=== PATIENT | male | born 1970 | race Caucasian/White ===

== ENCOUNTER 2021-12-23 01:54 | Inpatient (IN) | payer SELFPAY ==
[~2021-12-23] VITALS: Ht 180.3 cm; Wt 79.9 kg
[2021-12-23] MEDS ORDERED: PANTOPRAZOLE 40 MG (PROTONIX) VIAL IV ONE (02:15)
[2021-12-23] MEDS ORDERED: ONDANSETRON 4 MG/2 ML (SDV) Z0FRAN IVP ONE (02:15)
--- NOTE | 2021-12-23 02:18 | ED Chest Pain ---
General Chief Complaint: Chest Pain Stated Complaint: CP, SMOKING METH Source: patient, EMS History of Present Illness Date Seen by Provider: Dec 23, 2021 Time Seen by Provider: 02:05 Initial Comments PT ARRIVES VIA [facility] EMS FROM HOME EMS STAFF DID EKG AND READ IT "STEMI" AND CALLED MUD ANALYSIS OPERATOR--DR. ORR IS HERE ON PT'S ARRIVAL AND HE VIEWED EKG BY EMS AND EKG WAS DONE ON ARRIVAL HERE, AND HE ADVISES THAT EKG DOES NOT SHOW A STEMI, SO MUD ANALYSIS OPERATOR WAS CALLED OFF, AND DR. Mary Grace SCHULZ ADVISES TO WORK UP IN ER, AND WILL CALL HIM WITH TEST RESULTS PT STATES HIS SYMPTOMS BEGAN AROUND 0015 HE HAS BEEN INHALING METH THROUGH A "HOT RAIL" ("HOT RAILING METH") AND ALSO SMOKING THC. DENIES ETOH STATES HE STARTED GETTING DIZZY, AND BROKE OUT INTO A SWEAT, HAD NAUSEA, SOME SHORTNESS OF BREATH AND CHEST PAIN RATES PAIN 4/10 DESCRIBES ALOT OF ACID-REFLUX SYMPTOMS--STATES HE CAN FEEL THE ACID COMING UP TO HIS THROAT BP WAS 220'S SYSTOLIC FOR EMS THEY GAVE PT 324 MG ASPIRIN AND 1" NITROPASTE APPLIED, THEY ALSO GAVE ZOFRAN 4 MG PT DENIES ANY HISTORY OF CARDIAC PROBLEMS DENIES ANY MEDICAL PROBLEMS OF ANY KIND PCP: NONE Allergies and Home Medications Allergies Coded Allergies: No Known Drug Allergies (Unverified , 12/23/21) Patient Home Medication List Home Medication List Reviewed: Yes Review of Systems Review of Systems Constitutional: see HPI, chills, diaphoresis, dizziness Respiratory: See HPI, Cough, Shortness of Air Cardiovascular: See HPI, Chest Pain, Lightheadedness Gastrointestinal: See HPI; Denies Abdominal Pain; Nausea; Denies Vomiting Genitourinary: No Symptoms Reported Musculoskeletal: no symptoms reported Psychiatric/Neurological: Anxiety Endocrine: No Symptoms Reported Hematologic/Lymphatic: No Symptoms Reported Past Spcytba-Qlqgzh-Ssvbpv Hx Patient Social History Tobacco Use?: Yes Tobacco type used: Cigarettes Smoking Status: Current Everyday Smoker Substance use?: Yes Substance type: Methamphetamine, Marijuana Additional substance use comme: SMOKES METH Substance frequency: Daily Alcohol Use?: Yes Alcohol Frequency: Several times a month Past Medical History Surgeries: No Respiratory: No Cardiac: No Neurological: No Genitourinary: No Gastrointestinal: No Musculoskeletal: No Endocrine: No HEENT: No Cancer: No Psychosocial: Yes (POLUSUBTANCE ABUSE) Integumentary: No Blood Disorders: No Physical Exam Vital Signs Vital Signs - First Documented 12/23/21 02:00 Temp 36.8 Pulse 96 Resp 22 B/P (MAP) 174/96 (122) Pulse Ox 97 O2 Delivery Room Air Capillary Refill : Height, Weight, BMI Height: '" Weight: lbs. oz. kg; BMI Method: General Appearance: No Apparent Distress, WD/WN, Anxious, Other (CONSTANT MOVEMENTS, SHIVERING, CRUNTING AND GROWLING. ) Neck: Normal Inspection; No Carotid Bruit, No JVD Respiratory: Chest Non Tender, Normal Breath Sounds, No Accessory Muscle Use, No Respiratory Distress Cardiovascular: No Edema, No JVD, No Murmur, Normal Peripheral Pulses, Tachyca rdia Gastrointestinal: Non Tender, Soft Extremity: Normal Capillary Refill, Normal Inspection, Normal Range of Motion, Non Tender, No Calf Tenderness, No Pedal Edema Neurologic/Psychiatric: Alert, Oriented x3, No Motor/Sensory Deficits, extractor loader and unloader II- XII Norm as Tested Skin: Normal Color, Warm/Dry, Rash (HAS PATCHY MACULAR RASH ON TRUNK) Progress/Results/Core Measures Results/Orders Lab Results Laboratory Tests Test 12/23/21 02:08 12/23/21 02:14 12/23/21 02:50 Range/Units White Blood Count 10.6 4.3-11.0 10^3/uL Red Blood Count 4.43 4.30-5.52 10^6/uL Hemoglobin 14.0 13.3-17.7 g/dL Hematocrit 40 40-54 % Mean Corpuscular Volume 91 80-99 fL Mean Corpuscular Hemoglobin 32 25-34 pg Mean Corpuscular Hemoglobin Concent 35 32-36 g/dL Red Cell Distribution Width 12.7 10.0-14.5 % Platelet Count 314 130-400 10^3/uL Mean Platelet Volume 9.0 9.0-12.2 fL Immature Granulocyte % (Auto) 1 % Neutrophils (%) (Auto) 54 42-75 % Lymphocytes (%) (Auto) 33 12-44 % Monocytes (%) (Auto) 10 0-12 % Eosinophils (%) (Auto) 2 0-10 % Basophils (%) (Auto) 1 0-10 % Neutrophils # (Auto) 5.7 1.8-7.8 10^3/uL Lymphocytes # (Auto) 3.5 1.0-4.0 10^3/uL Monocytes # (Auto) 1.0 0.0-1.0 10^3/uL Eosinophils # (Auto) 0.2 0.0-0.3 10^3/uL Basophils # (Auto) 0.1 0.0-0.1 10^3/uL Immature Granulocyte # (Auto) 0.1 0.0-0.1 10^3/uL Erythrocyte Sedimentation Rate 2 0-15 MM/HR Prothrombin Time 13.4 12.2-14.7 SEC INR Comment 1.0 0.8-1.4 Activated Partial Thromboplast Time 29 24-35 SEC D-Dimer < 0.27 0.00-0.49 UG/ML Sodium Level 140 135-145 MMOL/L Potassium Level 3.8 3.6-5.0 MMOL/L Chloride Level 106 98-107 MMOL/L Carbon Dioxide Level 21 21-32 MMOL/L Anion Gap 13 5-14 MMOL/L Blood Urea Nitrogen 15 7-18 MG/DL Creatinine 1.11 0.60-1.30 MG/DL Estimat Glomerular Filtration Rate 81 BUN/Creatinine Ratio 14 Glucose Level 122 H 70-105 MG/DL Calcium Level 8.9 8.5-10.1 MG/DL Corrected Calcium 8.7 8.5-10.1 MG/DL Magnesium Level 1.9 1.6-2.4 MG/DL Total Bilirubin 0.3 0.1-1.0 MG/DL Aspartate Amino Transf (AST/SGOT) 37 H 5-34 U/L Alanine Aminotransferase (ALT/SGPT) 41 0-55 U/L Alkaline Phosphatase 34 L 40-136 U/L Total Creatine Kinase 282 H 30-200 U/L Creatine Kinase MB 3.8 <6.6 NG/ML Myoglobin 84.5 10.0-92.0 NG/ML Troponin I < 0.028 <0.028 NG/ML C-Reactive Protein High Sensitivity 0.05 0.00-0.50 MG/DL B-Type Natriuretic Peptide 13.2 <100.0 PG/ML Total Protein 7.1 6.4-8.2 GM/DL Albumin 4.3 3.2-4.5 GM/DL Amylase Level 60 25-125 U/L Lipase 39 8-78 U/L Acetaminophen Level < 10 L 10-30 UG/ML Serum Alcohol < 10 <10 MG/DL Influenza Type A (RT-PCR) Not Detected Not Detecte Influenza Type B (RT-PCR) Not Detected Not Detecte SARS-CoV-2 RNA (RT-PCR) Not Detected Not Detecte Urine Color YELLOW Urine Clarity CLEAR Urine pH 6.0 5-9 Urine Specific [place] <=1.005 1.016-1.022 Urine Protein NEGATIVE NEGATIVE Urine Glucose (UA) NEGATIVE NEGATIVE Urine Ketones NEGATIVE NEGATIVE Urine Nitrite NEGATIVE NEGATIVE Urine Bilirubin NEGATIVE NEGATIVE Urine Urobilinogen 0.2 < = 1.0 MG/DL Urine Leukocyte Esterase NEGATIVE NEGATIVE Urine RBC (Auto) NEGATIVE NEGATIVE Urine RBC NONE /HPF Urine WBC NONE /HPF Urine Crystals NONE /LPF Urine Leucine Crystals /LPF Urine Bacteria NEGATIVE /HPF Urine Casts NONE /LPF Urine Mucus NEGATIVE /LPF Urine Culture Indicated NO Urine Opiates Screen NEGATIVE NEGATIVE Urine Oxycodone Screen NEGATIVE NEGATIVE Urine Methadone Screen NEGATIVE NEGATIVE Urine Propoxyphene Screen NEGATIVE NEGATIVE Urine Barbiturates Screen NEGATIVE NEGATIVE Ur Tricyclic Antidepressants Screen NEGATIVE NEGATIVE Urine Phencyclidine Screen NEGATIVE NEGATIVE Urine Amphetamines Screen POSITIVE H NEGATIVE Urine Methamphetamines Screen POSITIVE H NEGATIVE Urine Benzodiazepines Screen NEGATIVE NEGATIVE Urine Cocaine Screen NEGATIVE NEGATIVE Urine Cannabinoids Screen POSITIVE H NEGATIVE My Orders Orders - MERLIN MERCEDES DO Ed Iv/Invasive Line Start (12/23/21 02:03) Ekg Tracing (12/23/21 02:03) O2 (12/23/21 02:03) Monitor-Rhythm Ecg Trace Only (12/23/21 02:03) Acetaminophen (12/23/21 02:03) Alcohol (12/23/21 02:03) Amylase (12/23/21 02:03) Bnp Azul (12/23/21 02:03) Cbc With Automated Diff (12/23/21 02:03) Comprehensive Metabolic Panel (12/23/21 02:03) Creatine Kinase (12/23/21 02:03) Creatine Kinase Mb (12/23/21 02:03) Hs C Reactive Protein (12/23/21 02:03) Fibrin Degradation Products (12/23/21 02:03) Drug Screen Stat (Urine) (12/23/21 02:03) Lipase (12/23/21 02:03) Magnesium (12/23/21 02:03) Protime With Inr (12/23/21 02:03) Partial Thromboplastin Time (12/23/21 02:03) Ua Culture If Indicated (12/23/21 02:03) Erythrocyte Sedimentation Rate (12/23/21 02:03) Myoglobin Serum (12/23/21 02:03) Troponin I Azul (12/23/21 02:03) Chest 1 View, Ap/Pa Only (12/23/21 02:03) Ondansetron Injection (Zofran Injectio (12/23/21 02:15) Pantoprazole Injection (Protonix Injecti (12/23/21 02:15) Syphilis Antibody Screen (12/23/21 02:03) Covid 19 Inhouse Test (12/23/21 02:20) Influenza A And B By Pcr (12/23/21 02:20) Isolation Central Supply Req (12/23/21 02:20) Medications Given in ED Current Medications Medications Dose Ordered Sig/Joan Route Start Time Stop Time Status Last Admin Dose Admin Ondansetron HCl 4 mg ONCE ONCE IVP 12/23/21 02:15 12/23/21 02:16 DC 12/23/21 02:40 4 MG Pantoprazole 40 mg ONCE ONCE IV 12/23/21 02:15 12/23/21 02:16 DC 12/23/21 02:40 40 MG Vital Signs/I&O 12/23/21 02:00 Temp 36.8 Pulse 96 Resp 22 B/P (MAP) 174/96 (122) Pulse Ox 97 O2 Delivery Room Air Progress Progress Note : Progress Note NO DETERIORATION IN PT'S CONDITION DURING ER STAY GIVEN ZOFRAN, PROTONIX, GI COCTAIL RATES PAIN 2/10 GIVEN LOVENOX PT IS CALMER AT TIME OF ADMIT Initial ECG Impression Date: Dec 23, 2021 Initial ECG Impression Time: 02:01 Initial ECG Rate: 98 Initial ECG Rhythm: Normal Sinus (ST DEPRESSION ANTERIOR AND LATERALLY, INFERIOR Q WAVES) Diagnostic Imaging Comments CXR--NO ACUTE PROCESS Reviewed: Reviewed by Me Departure Communication (Admissions) 253--SPOKE WITH DR. ORR, ADVISES TO GIVE LOVENOX, AND ADMIT TO HOSPITALIST 254--SPOKE WITH DR. ESTRADA, HOSPITALIST, ACCEPTS PT FOR ADMIT. 309--REPORT TO E-ICU Impression Primary Impression: Chest pain Additional Impressions: Methamphetamine use Marijuana use GERD SYMPTOMS NON SPECIFIC RASH ON TRUNK Disposition: ADMITTED INPATIENT Condition: Improved Admissions Decision to Admit Reason: Admit from ER (General) Decision to Admit/Date: Dec 23, 2021 Time/Decision to Admit Time: 02:55 Departure-Patient Inst. Referrals: NO,LOCAL PHYSICIAN (PCP/Family) Primary Care Physician MERLIN MERCEDES DO Dec 23, 2021 02:17
[2021-12-23 02:20] LABS: BASOPHILS # (AUTO) 0.1 10^3/uL (0.0-0.1); BASOPHILS % (AUTO) 1 % (0-10); EOSINOPHILS # (AUTO) 0.2 10^3/uL (0.0-0.3); EOSINOPHILS % (AUTO) 2 % (0-10); HEMATOCRIT 40 % (40-54); LYMPHOCYTES # (AUTO) 3.5 10^3/uL (1.0-4.0); LYMPHOCYTES % (AUTO) 33 % (12-44); MEAN CORPUSCULAR HEMOGLOBIN 32 pg (25-34); MEAN CORPUSCULAR HGB CONC 35 g/dL (32-36); MEAN CORPUSCULAR VOLUME 91 fL (80-99); MONOCYTES % (AUTO) 10 % (0-12); NEUTROPHILS # (AUTO) 5.7 10^3/uL (1.8-7.8); NEUTROPHILS % (AUTO) 54 % (42-75); PLATELET COUNT 314 10^3/uL (130-400); WHITE BLOOD COUNT 10.6 10^3/uL (4.3-11.0)
[2021-12-23 02:31] LABS: ALBUMIN 4.3 GM/DL (3.2-4.5); CHLORIDE 106 MMOL/L (98-107); POTASSIUM 3.8 MMOL/L (3.6-5.0); SODIUM 140 MMOL/L (135-145)
[2021-12-23 02:32] LABS: CALCIUM 8.9 MG/DL (8.5-10.1)
[2021-12-23 02:33] LABS: AMYLASE 60 U/L (25-125)
[2021-12-23 02:34] LABS: FIBRIN DEGRADATION PRODUCTS < 0.27 UG/ML (0.00-0.49); GLUCOSE 122 MG/DL (70-105); PARTIAL THROMBOPLASTIN TIME 29 SEC (24-35); PROTHROMBIN TIME PATIENT 13.4 SEC (12.2-14.7); TOTAL PROTEIN 7.1 GM/DL (6.4-8.2)
[2021-12-23 02:35] LABS: BILIRUBIN,TOTAL 0.3 MG/DL (0.1-1.0); CARBON DIOXIDE 21 MMOL/L (21-32)
[2021-12-23 02:37] LABS: ALKALINE PHOSPHATASE 34 U/L (40-136); CREATININE SERUM 1.11 MG/DL (0.60-1.30); GFR ESTIMATED 81
[2021-12-23 02:38] LABS: BUN/CREATININE RATIO 14
[2021-12-23 02:40] LABS: ALANINE AMINOTRANSFERASE 41 U/L (0-55); MAGNESIUM 1.9 MG/DL (1.6-2.4)
[2021-12-23 02:41] LABS: CREATINE KINASE 282 U/L (30-200); LIPASE 39 U/L (8-78)
[2021-12-23 02:44] LABS: ERYTHROCYTE SEDIMENTATION RATE 2 MM/HR (0-15)
[2021-12-23 02:48] LABS: CREATINE KINASE MB 3.8 NG/ML (<6.6)
[2021-12-23 02:51] LABS: ACETAMINOPHEN < 10 UG/ML (10-30)
[2021-12-23] MEDS ORDERED: LIDOCAINE 2% VISCOUS 15 ML UDC PO ONE (03:00)
[2021-12-23] MEDS ORDERED: ENOXAPARIN 80 MG/0.8 ML (LOVENOX) SYR SC ONE (03:00)
[2021-12-23] MEDS ORDERED: ANTACID SUSP 30 ML UDC (MYLANTA) PO ONE (03:00)
[2021-12-23 03:11] LABS: AMPHETAMINE SCREEN, URINE POSITIVE (NEGATIVE); BARBITURATE SCREEN URINE NEGATIVE (NEGATIVE); BENZODIAZEPINES SCREEN URINE NEGATIVE (NEGATIVE); CANNABINOID SCREEN, URINE POSITIVE (NEGATIVE); COCAINE SCREEN URINE NEGATIVE (NEGATIVE); METHADONE STAT NEGATIVE (NEGATIVE); OPIATE SCREEN URINE NEGATIVE (NEGATIVE); OXYCODONE STAT NEGATIVE (NEGATIVE); PROPOXYPHENE STAT NEGATIVE (NEGATIVE); TRICYCLIC ANTIDEPRESSANTS SCRE NEGATIVE (NEGATIVE)
[2021-12-23 03:12] LABS: CLARITY,URINE CLEAR; COLOR,URINE YELLOW; GLUCOSE, URINE (UA) NEGATIVE (NEGATIVE); KETONES,URINE NEGATIVE (NEGATIVE); NITRITE,URINE NEGATIVE (NEGATIVE); PROTEIN,URINE NEGATIVE (NEGATIVE)
[2021-12-23 03:13] LABS: BACTERIA,URINE NEGATIVE /HPF; BILIRUBIN,URINE NEGATIVE (NEGATIVE); LEUKOCYTE ESTERASE ,URINE NEGATIVE (NEGATIVE)
[2021-12-23] MEDS ORDERED: morphine INJ 4 MG/ML 1 ML (VIAL/SYRINGE) IV PRN (04:30)
[2021-12-23] MEDS ORDERED: ONDANSETRON 4 MG/2 ML (SDV) Z0FRAN IVP PRN (04:30)
[2021-12-23] MEDS ORDERED: D5 1/2 NS W/KCL 20 MEQ/L 1,000 ML IV SCH (04:30)
[2021-12-23] MEDS: NITROGLYCERIN 2% OINT 1 GM UNIT DOSE PACKET TOP SCH ×2 (04:57→10:30)
--- NOTE | 2021-12-23 07:00 | Diagnostic Imaging Report ---
CLINICAL INDICATION: Patient complains of chest pain after smoking meth. EXAM: Portable chest x-ray upright view. COMPARISON: None. FINDINGS: Lungs/pleura: Lungs are clear. There is no pneumothorax. There is no pleural effusion. Mediastinum: Unremarkable. Pulmonary vasculature: Unremarkable. Heart: Unremarkable. Bones/extrathoracic soft tissue: Unremarkable. IMPRESSION: There is no radiographic evidence of acute cardiopulmonary process. Dictated by: Dictated on workstation # [id number]
--- NOTE | 2021-12-23 08:01 | Consultation-Cardiology ---
HPI-Cardiology Cardiology Consultation Date of Consultation 12/23/21 Date of Admission Time Seen by Provider: 07:57 Indication: Chest pain HPI 51 years old gentleman with history of substance abuse, was smoking meth and THC yesterday then took some medication for erectile dysfunction and became diaphoretic and sweaty. Started to have chest pain described as dull in nature on the left side of his chest radiating to the center of his chest about 4/10 in intensity. EMT did EKG which was suspicious of acute myocardial infarction, Child Welfare Social Worker was already activated for another emergency. We waited for the patient to arrive, on review of his EKG did not show any acute changes. Patient had a nitroglycerin patch. He was admitted to ICU. On my evaluation he appeared to be feeling better. Denied any active chest pain. Having some headache. Has been having nausea. No vomiting. Home Medications & Allergies Allergies: Coded Allergies: No Known Drug Allergies (Unverified , 12/23/21) Home Medication List Reviewed: Yes PIJ-Jvlmbu-Lhgdkx Hx Patient Social History Employed/Student: unemployed Smoking Status: Current Everyday Smoker Have you traveled recently?: No Alcohol Use?: No Substance type: Methamphetamine, Marijuana Past Medical History Discussed below Family Medical History Family Medical Hx Noncontributory Review of Systems-General Review of Systems Constitutional: see HPI, chills, diaphoresis, dizziness EENTM: see HPI, no symptoms reported Respiratory: no symptoms reported, see HPI Cardiovascular: see HPI, chest pain; No edema, No Hx of Intervention, No palpitations, No syncope, No vascular heart diseas, No other Gastrointestinal: no symptoms reported, see HPI, nausea Genitourinary: no symptoms reported, see HPI Musculoskeletal: no symptoms reported Skin: no symptoms reported, see HPI Psychiatric/Neurological: Anxiety Reviewed Test Results Reviewed Test Results Lab Laboratory Tests Test 12/23/21 02:08 12/23/21 02:14 12/23/21 02:50 12/23/21 04:48 Range/Units White Blood Count 10.6 4.3-11.0 10^3/uL Red Blood Count 4.43 4.30-5.52 10^6/uL Hemoglobin 14.0 13.3-17.7 g/dL Hematocrit 40 40-54 % Mean Corpuscular Volume 91 80-99 fL Mean Corpuscular Hemoglobin 32 25-34 pg Mean Corpuscular Hemoglobin Concent 35 32-36 g/dL Red Cell Distribution Width 12.7 10.0-14.5 % Platelet Count 314 130-400 10^3/uL Mean Platelet Volume 9.0 9.0-12.2 fL Immature Granulocyte % (Auto) 1 % Neutrophils (%) (Auto) 54 42-75 % Lymphocytes (%) (Auto) 33 12-44 % Monocytes (%) (Auto) 10 0-12 % Eosinophils (%) (Auto) 2 0-10 % Basophils (%) (Auto) 1 0-10 % Neutrophils # (Auto) 5.7 1.8-7.8 10^3/uL Lymphocytes # (Auto) 3.5 1.0-4.0 10^3/uL Monocytes # (Auto) 1.0 0.0-1.0 10^3/uL Eosinophils # (Auto) 0.2 0.0-0.3 10^3/uL Basophils # (Auto) 0.1 0.0-0.1 10^3/uL Immature Granulocyte # (Auto) 0.1 0.0-0.1 10^3/uL Erythrocyte Sedimentation Rate 2 0-15 MM/HR Prothrombin Time 13.4 12.2-14.7 SEC INR Comment 1.0 0.8-1.4 Activated Partial Thromboplast Time 29 24-35 SEC D-Dimer < 0.27 0.00-0.49 UG/ML Sodium Level 140 135-145 MMOL/L Potassium Level 3.8 3.6-5.0 MMOL/L Chloride Level 106 98-107 MMOL/L Carbon Dioxide Level 21 21-32 MMOL/L Anion Gap 13 5-14 MMOL/L Blood Urea Nitrogen 15 7-18 MG/DL Creatinine 1.11 0.60-1.30 MG/DL Estimat Glomerular Filtration Rate 81 BUN/Creatinine Ratio 14 Glucose Level 122 H 70-105 MG/DL Calcium Level 8.9 8.5-10.1 MG/DL Corrected Calcium 8.7 8.5-10.1 MG/DL Magnesium Level 1.9 1.6-2.4 MG/DL Total Bilirubin 0.3 0.1-1.0 MG/DL Aspartate Amino Transf (AST/SGOT) 37 H 5-34 U/L Alanine Aminotransferase (ALT/SGPT) 41 0-55 U/L Alkaline Phosphatase 34 L 40-136 U/L Total Creatine Kinase 282 H 30-200 U/L Creatine Kinase MB 3.8 <6.6 NG/ML Myoglobin 84.5 10.0-92.0 NG/ML Troponin I < 0.028 < 0.028 <0.028 NG/ML C-Reactive Protein High Sensitivity 0.05 0.00-0.50 MG/DL B-Type Natriuretic Peptide 13.2 <100.0 PG/ML Total Protein 7.1 6.4-8.2 GM/DL Albumin 4.3 3.2-4.5 GM/DL Amylase Level 60 25-125 U/L Lipase 39 8-78 U/L Acetaminophen Level < 10 L 10-30 UG/ML Serum Alcohol < 10 <10 MG/DL Influenza Type A (RT-PCR) Not Detected Not Detecte Influenza Type B (RT-PCR) Not Detected Not Detecte SARS-CoV-2 RNA (RT-PCR) Not Detected Not Detecte Urine Color YELLOW Urine Clarity CLEAR Urine pH 6.0 5-9 Urine Specific [place] <=1.005 1.016-1.022 Urine Protein NEGATIVE NEGATIVE Urine Glucose (UA) NEGATIVE NEGATIVE Urine Ketones NEGATIVE NEGATIVE Urine Nitrite NEGATIVE NEGATIVE Urine Bilirubin NEGATIVE NEGATIVE Urine Urobilinogen 0.2 < = 1.0 MG/DL Urine Leukocyte Esterase NEGATIVE NEGATIVE Urine RBC (Auto) NEGATIVE NEGATIVE Urine RBC NONE /HPF Urine WBC NONE /HPF Urine Crystals NONE /LPF Urine Leucine Crystals /LPF Urine Bacteria NEGATIVE /HPF Urine Casts NONE /LPF Urine Mucus NEGATIVE /LPF Urine Culture Indicated NO Urine Opiates Screen NEGATIVE NEGATIVE Urine Oxycodone Screen NEGATIVE NEGATIVE Urine Methadone Screen NEGATIVE NEGATIVE Urine Propoxyphene Screen NEGATIVE NEGATIVE Urine Barbiturates Screen NEGATIVE NEGATIVE Ur Tricyclic Antidepressants Screen NEGATIVE NEGATIVE Urine Phencyclidine Screen NEGATIVE NEGATIVE Urine Amphetamines Screen POSITIVE H NEGATIVE Urine Methamphetamines Screen POSITIVE H NEGATIVE Urine Benzodiazepines Screen NEGATIVE NEGATIVE Urine Cocaine Screen NEGATIVE NEGATIVE Urine Cannabinoids Screen POSITIVE H NEGATIVE Physical Exam Physical Exam Vital Signs Vital Signs - First Documented 12/23/21 02:00 Temp 36.8 Pulse 96 Resp 22 B/P (MAP) 174/96 (122) Pulse Ox 97 O2 Delivery Room Air Capillary Refill : Less Than 3 Seconds Height, Weight, BMI Height: '" Weight: lbs. oz. kg; 24.57 BMI Method: General Appearance: No Apparent Distress, WD/WN, Anxious, Other (CONSTANT MOVEMENTS, SHIVERING, CRUNTING AND GROWLING. ) Eyes: Bilateral Eye Normal Inspection, Bilateral Eye PERRL, Bilateral Eye EOMI HEENT: PERRL/EOMI, TMs Normal, Normal ENT Inspection, Pharynx Normal, Moist Mucous Membranes Neck: Normal Inspection; No Carotid Bruit, No JVD Respiratory: Chest Non Tender, Normal Breath Sounds, No Accessory Muscle Use, No Respiratory Distress Cardiovascular: No Edema, No JVD, No Murmur, Normal Peripheral Pulses, Tachycardia Gastrointestinal: Non Tender, Soft Back: Normal Inspection, No CVA Tenderness, No Vertebral Tenderness Extremity: Normal Capillary Refill, Normal Inspection, Normal Range of Motion, Non Tender, No Calf Tenderness, No Pedal Edema Neurologic/Psychiatric: Alert, Oriented x3, No Motor/Sensory Deficits, shirt closer II- XII Norm as Tested Skin: Normal Color, Warm/Dry, Rash (HAS PATCHY MACULAR RASH ON TRUNK) Lymphatic: No Adenopathy A/P-Cardiology Admission Diagnosis Chest pain Hypertensive urgency Tobaccoism Substance abuse Assessment/Plan Chest pain nonspecific etiology, atypical in presentation Cardiac enzymes continue to be negative, EKG did not show any acute changes. Okay for discharge and follow-up as an outpatient to evaluate the stress test. Hypertensive urgency, blood pressure is normal at this time. Continue to monitor blood pressure as an outpatient. No need to initiate medication at this point. Tobaccoism, educated on smoking cessation Substance abuse with methamphetamine and THC, educated on avoiding illicit simran gs. Clinical Quality Measures AMI/AHF: ASA po Prior to arrival: Yes IVIS ORR MD Dec 23, 2021 08:01
[2021-12-23] MEDS ORDERED: IBUPROFEN 600 MG (MOTRIN) TAB PO PRN (08:15)
[2021-12-23] MEDS ORDERED: PANTOPRAZOLE 40 MG (PROTONIX) VIAL IV SCH (09:00)
[2021-12-23] MEDS ORDERED: ASPIRIN E.C. 81 MG (ECOTRIN) TAB PO SCH (09:00)
--- NOTE | 2021-12-23 09:53 | Tele-ICU Consult ---
History of Present Illness History of Present Illness Date Seen by Provider: Dec 23, 2021 Time Seen by Provider: 09:53 Date of Admission (Tele-ICU Physician , consultation) Available chart/ vitals / labs / Images reviewed H&P is from ER notes Patient's information available about PMH, Shx, Fhx allergy reviewed inEMR. ROS as per chart and RN report Now in ICU, hemodynamically stable Video assessment done using teleICU camera, rest of exam as per RN Discussed with RN. Consultants: Hospital course: (12/23) 51yM Admit CP, (pt was smoking meth & thc), neg covid and flu A/P Chest pain - cards consulted, follow - Lovenox - trop negative , echo with NL EF Elv CPK - very mild - hydration TO CONT NOW HTN on admission - normal BP today - as pe rcards GERD - cont PPI INHALING METH THROUGH A "HOT RAIL" ("HOT RAILING METH") ALSO SMOKING THC - on RA - watch for withdrawal Lines : periph , (Central Line Necessity Reviewed) Pierce: OG: Nutrition: Analgesia: Anxiety/ delirium VTE Prophylaxis: Stress Ulcer Prophylaxis: Glycemic Control: PER pcp Plans in collaboration with bedside consultants and IM MDs. Discussed with RN to reach out if any questions or concerns A total of 15 minutes of critical care time was devoted to this patient today, required to treat and/or prevent further deterioration of critical care condition ( as above ) . Reason for Visit: Chest pain Allergies and Home Medications Allergies Coded Allergies: No Known Drug Allergies (Unverified , 12/23/21) Past Medical/Social/Family Hx Patient Social History Employed/Student: unemployed Tobacco Use?: Yes Tobacco type used: Cigarettes Smoking Status: Current Everyday Smoker Smokeless Tobacco Frequency: Current Everyday User Use of E-Cig and/or Vaping dev: No Substance use?: Yes Substance type: Methamphetamine, Marijuana SMOKES METH Substance frequency: Daily Alcohol Use?: No Alcohol Frequency: Several times a month Pt stated abuse/neglect: No Immunizations Up To Date Influenza Vaccine Up-to-Date: No; Not Current Tetanus Booster (TDap): Unknown Current Status Advance Directives: No Communicates: Verbally Primary Language: Sinhala Preferred Spoken Language: Sinhala Is interpretation needed?: No Implanted or Applied Medical D: None Review of Systems Constitutional: see HPI Focused Exam Height, Weight, BMI Height: '" Weight: lbs. oz. kg; 24.57 BMI Method: Exam Exam Patient acknowledged, consented, and participated in this virtual visit which was conducted using real time audio/video Vital Signs Date Time Temp Pulse Resp B/P (MAP) Pulse Ox O2 Delivery O2 Flow Rate FiO2 12/23/21 09:00 92 19 110/76 (87) 98 Room Air 12/23/21 08:00 97 Room Air 12/23/21 08:00 70 21 99/49 (66) 98 Room Air 12/23/21 07:39 36.6 12/23/21 07:04 73 12/23/21 07:00 69 16 108/64 (79) 96 Room Air 12/23/21 06:00 80 17 106/64 (78) 95 Room Air 12/23/21 05:45 79 18 107/67 (80) 95 Room Air 12/23/21 05:30 73 21 106/64 (78) 95 Room Air 12/23/21 05:15 69 21 111/68 (82) 98 Room Air 12/23/21 05:00 95 22 92/53 (66) 96 Room Air 12/23/21 04:45 80 22 110/64 (79) 97 Room Air 12/23/21 04:30 98 30 112/60 (77) 97 Room Air 12/23/21 04:15 86 23 120/81 (94) 96 Room Air 12/23/21 04:03 112 12/23/21 04:00 85 20 136/87 (103) Room Air 12/23/21 04:00 98 12/23/21 04:00 36.4 82 12 136/87 (103) 95 Room Air 12/23/21 03:23 89 18 174/96 98 Room Air 12/23/21 02:00 36.8 96 22 174/96 (122) 97 Room Air I & O 12/23/21 06:59 Intake Total 350 ml Output Total 0 ml Balance 350 ml Height & Weight Height: '" Weight: lbs. oz. kg; 24.57 BMI Method: General Appearance: No Apparent Distress, WD/WN, Anxious, Other (CONSTANT MOVEMENTS, SHIVERING, CRUNTING AND GROWLING. ) HEENT: PERRL/EOMI, TMs Normal, Normal ENT Inspection, Pharynx Normal, Moist Mu cous Membranes Neck: Normal Inspection; No Carotid Bruit, No JVD Respiratory: Chest Non Tender, Normal Breath Sounds, No Accessory Muscle Use, No Respiratory Distress Cardiovascular: No Edema, No JVD, No Murmur, Normal Peripheral Pulses, Tachycardia Capillary Refill: Less Than 3 Seconds Extremity: Normal Capillary Refill, Normal Inspection, Normal Range of Motion, Non Tender, No Calf Tenderness, No Pedal Edema Neurologic/Psychiatric: Alert, Oriented x3, No Motor/Sensory Deficits, business operations specialist II- XII Norm as Tested Skin: Normal Color, Warm/Dry, Rash (HAS PATCHY MACULAR RASH ON TRUNK) Lymphatic: No Adenopathy Results Lab Laboratory Tests 12/23/21 02:08 Assessment/Plan Assessment/Plan 1 JACIEL STAFFORD MD Dec 23, 2021 09:53
[2021-12-23] MEDS ORDERED: ENOXAPARIN 80 MG/0.8 ML (LOVENOX) SYR SC SCH (15:00)
[2021-12-23 15:35] VITALS: BP 108/70
== END 2021-12-23 15:20 | disposition home or self-care (01) | DRG 313 ==
LOC: ER 01:57 → ICU 02:55
PROVIDERS: ADMIT Internal Medicine; ATTEND Internal Medicine
DX: R07.89 Other chest pain (principal); F17.210 Nicotine dependence, cigarettes, uncomplicated; Z20.822 Contact with and (suspected) exposure to COVID-19; K21.9 Gastro-esophageal reflux disease without esophagitis; I10 Essential (primary) hypertension; I16.0 Hypertensive urgency; F15.10 Other stimulant abuse, uncomplicated; F12.10 Cannabis abuse, uncomplicated
CPT/HCPCS: 36415; 71045; 80053; 80306; 80320; 80329; 81000; 82150; 82550; 82553; 83690; 83735; 83874; 83880; 84484; 85025; 85379; 85610; 85652; 85730; 86141; 86780; 87081; 87636; 93005; 93041; 93306

== ENCOUNTER 2022-11-25 16:46 | Emergency (ER) | payer SELFPAY ==
[~2022-11-25] VITALS: Ht 180.3 cm; Wt 85.9 kg
[2022-11-25 16:54] VITALS: BP 161/113
[2022-11-25] MEDS ORDERED: oxyCODONE/ACETAMINOPHEN 5/325MG TABLET PO ONE (17:15)
[2022-11-25] MEDS ORDERED: LIDOCAINE 2% VISCOUS 15 ML UDC MM ONE (17:15)
[2022-11-25] MEDS ORDERED: AMOX500C2 PO (17:23)
[2022-11-25] MEDS ORDERED: ACHD5005 PO (17:23)
--- NOTE | 2022-11-25 17:24 | ED EENT ---
History of Present Illness General Chief Complaint: Dental Problems/Pain Stated Complaint: WEEKS OLD TOOTH PAIN,HEADACHE,COLD SWEATS Nursing Triage Note: Patient states he has had top right dental pain for several months, states the pain has been worse the last several weeks. He states he has been taking tylenol and ibprofen at home every 12 hours without relief. Source: patient Exam Limitations: no limitations History of Present Illness Date Seen by Provider: Nov 25, 2022 Time Seen by Provider: 16:49 Initial Comments This 52-year-old gentleman presents to the emergency room with significant dental pain. He has an eroded right upper molar that has been causing him pain for months and has worsened in the last few weeks. He is taking 3-4 Advil and 2 Tylenol about every 12 hours without sufficient relief. He denies any fevers. He has associated headache. He has been trying to get into the dentist but has to wait for his appointment. He reports being directed to the emergency room to start antibiotic therapy while he is waiting for his appointment. He has also tried topical [id number] anesthetics which have not been sufficient. Allergies and Home Medications Allergies Coded Allergies: No Known Drug Allergies (Unverified , 12/23/21) Patient Home Medication List Home Medication List Reviewed: Yes Amoxicillin (Amoxicillin) 500 Mg Capsule, 1,000 MG PO BID Prescribed by: MERRICK YE on 11/25/22 1723 Hydrocodone/Acetaminophen (Hydrocodone-Acetamin 5-325 mg) 5 Mg-325 Mg Tablet, 1 TAB PO Q4H PRN for PAIN BREAKTROUGH Prescribed by: MERRICK YE on 11/25/22 1724 Review of Systems Review of Systems Constitutional: no symptoms reported Eyes: No Symptoms Reported Ears: No Symptoms Reported Nose: no symptoms reported Mouth: see HPI Throat: no symptoms reported Respiratory: no symptoms reported Cardiovascular: no symptoms reported Gastrointestinal: no symptoms reported Musculoskeletal: no symptoms reported Skin: no symptoms reported Neurological: No Symptoms Reported Hematologic/Lymphatic: No Symptoms Reported Past Fdjfeap-Azsmmp-Uwaugx Hx Patient Social History Tobacco Use?: Yes Tobacco type used: Cigarettes Smoking Status: Current Everyday Smoker Substance use?: Yes Substance type: Methamphetamine (Former use), Marijuana Alcohol Use?: No Pt feels they are or have been: No Past Medical History Surgeries: No Respiratory: No Cardiac: No Neurological: No Genitourinary: No Gastrointestinal: No Musculoskeletal: No Endocrine: No HEENT: No Cancer: No Psychosocial: Yes (POLUSUBTANCE ABUSE) Integumentary: No Blood Disorders: No Physical Exam Vital Signs Vital Signs - First Documented 11/25/22 16:54 Pulse 73 Resp 16 B/P (MAP) 161/113 (129) Pulse Ox 100 O2 Delivery Room Air Height, Weight, BMI Height: '" Weight: lbs. oz. kg; 26.00 BMI Method: General Appearance: WD/WN, mild distress Eyes: bilateral eye normal inspection Ears: bilateral ear auricle normal, bilateral ear canal normal, bilateral ear TM normal Nose: normal inspection Mouth/Throat: pharynx normal, dental tenderness, other (severely erroded upper right molar. No significant fluctuance, inflammation or edema to suggest drainable abscess) Cardiovascular: regular rate, rhythm, no murmur Respiratory: lungs clear, normal breath sounds, no respiratory distress Neurologic/Psychiatric: alert, oriented x 3 Skin: normal color, warm/dry Progress/Results/Core Measures Results/Orders My Orders Orders - MERRICK LAWS MD Oxycodone/Apap 5/325mg Tablet (Oxycodon (11/25/22 17:15) Lidocaine 2% Viscous 15 Ml (Xylocaine Vi (11/25/22 17:15) Medications Given in ED Vital Signs/I&O Blood Pressure Mean: 129 Progress Progress Note : Progress Note Pain was treated with hydrocodone. Rx for antibiotics and hydrocodone provided. Anesthetic gauze pads were prepped and dispensed. Discharge instructions were reviewed. Departure Impression Primary Impression: Dental decay Additional Impression: Pain, dental Disposition: 01 HOME, SELF-CARE Condition: Improved Departure-Patient Inst. Decision time for Depature: 17:20 Referrals: NO,LOCAL PHYSICIAN (PCP/Family) Primary Care Physician Patient Instructions: Dental Pain ED, Tooth Decay ED Add. Discharge Instructions: See a dentist as soon as possible. The best long-term solution for your pain is to have the remaining tooth and root extracted. For primary pain control you may take ibuprofen up to 600 mg every 6 hours as needed. Take with food or milk to avoid stomach upset. Add hydrocodone as prescribed for additional pain relief if needed. Hydrocodone may cause drowsiness, so do not use hydrocodone while driving, operating machinery, or making important decisions. Hydrocodone may also cause constipation, so you may wish to use a stool softener such as Colace while on hydrocodone. You may use the anesthetic gauze pads provided to provide topical pain relief. Eat and drink very carefully after using gauze pads as they will numb your tongue, lips, cheeks, and throat. Do NOT fall asleep with anesthetic gauze pads in your mouth as this will present a choking risk. Complete your antibiotics as prescribed. Return to care if you have worsening symptoms such as escalating pain not responsive to your medications, fever, etc. All discharge instructions reviewed with patient and/or family. Voiced understanding. Scripts Hydrocodone/Acetaminophen (Hydrocodone-Acetamin 5-325 mg) 5 Mg-325 Mg Tablet 1 TAB PO Q4H PRN for PAIN BREAKTROUGH, #20 TAB Prov: MERRICK LAWS MD 11/25/22 Amoxicillin (Amoxicillin) 500 Mg Capsule 1000 MG PO BID, #40 CAP 0 Refills Prov: MERRICK LAWS MD 11/25/22 MERRICK LAWS MD Nov 25, 2022 17:24
== END 2022-11-25 17:26 | disposition home or self-care (01) ==
LOC: EDUNIT# 16:46 → ER FS 16:48
DX: K02.9 Dental caries, unspecified (principal); F17.210 Nicotine dependence, cigarettes, uncomplicated
CPT/HCPCS: 99283